=== PATIENT | male | born 1960 | race Caucasian/White ===

== ENCOUNTER → 2020-10-06 08:42 | Outpatient (CLI) | payer OTHER, MEDICAID, SELFPAY ==
--- NOTE | 2020-10-06 | DI.MRI.S_ITS ---
PROCEDURE: MR ANKLE LT WO CON INDICATIONS: Pain in left foot TECHNIQUE: Noncontrast sagittal T1 spin echo and T2 fast spin echo with fat saturation, axial proton density fast spin echo and T2 fast spin echo with fat saturation, coronal T1 spin echo and T2 fast spin echo with fat saturation through the ankle/hindfoot. COMPARISON: None. FINDINGS: Image quality: Excellent. Bones and joints: No bone marrow contusions or fractures. No hindfoot coalitions. No osteochondral injuries of the talar dome. No pathologic joint effusions. Medial structures: The posterior tibialis, flexor digitorum longus, and flexor hallucis longus tendons are intact. Posterior tibialis tendon is thickened with fluid in tendon sheath compatible with moderate tenosynovitis. Flexor digitorum tendon is thickened with increased fluid in the tendon sheath compatible with mild tenosynovitis. The posterior tibial neurovascular bundle appears normal within the tarsal tunnel, without extrinsic mass effect. The deep layer (anterior and posterior tibiotalar ligaments) and superficial layer (tibionavicular, tibiospring, and tibiocalcaneal ligaments) of the deltoid ligament appear normal. The spring ligament components (superomedial calcaneonavicular, medioplantar oblique calcaneonavicular, and inferoplantar longitudinal ligaments) are intact. Accessory navicular bone noted with degenerative changes across the syndesmosis. Lateral structures: The anterior talofibular, calcaneofibular, and posterior talofibular ligaments appear intact. More superiorly, the anterior and posterior tibiofibular ligaments appear intact, as is the intermalleolar ligament. The tibiofibular syndesmosis is normal in width at 2 mm or less. There is a split tear of the peroneus brevis tendon at the ankle. Peroneus longus tendon is thickened with increased internal signal compatible with moderate tendinosis. Adjacent bony peroneal tubercle and retrotrochlear prominence are normal in size. The sinus tarsi demonstrates normal fatty signal, without edema, fibrosis, or cyst formation. Visualized sinus tarsi components (cervical ligament, interosseous talocalcaneal ligament, roots of the inferior extensor retinaculum) appear normal. The calcaneonavicular and calcaneocuboid components of the bifurcate ligament appear intact. The dorsal calcaneocuboid ligament appears intact. Small ganglion cyst noted at the calcaneocuboid joint. Anterior structures: The tibialis anterior, extensor hallucis longus, and extensor digitorum longus tendons appear intact. The dorsal talonavicular ligament appears intact. Posterior and plantar structures: Achilles tendon is intact. Medial gland of the plantar fascia is thickened with adjacent edema compatible with moderate fasciitis. Plantar calcaneal bone spur noted. The lateral band of the plantar fascia are of normal thickness. No abductor digiti quinti muscle atrophy to suggest Bolton neuropathy. IMPRESSION: 1. Split tear of the peroneus brevis tendon at the ankle. 2. Moderate posterior tibialis and mild flexor digitorum tenosynovitis. 3. Moderate peroneus longus tendinosis. 4. Moderate plantar fasciitis. 5. 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 Dictated by: Gita Durant MD, PhD on 10/06/2020 at 12:12 Approved by: Gita Durant MD, PhD on 10/06/2020 at 17:35
== END ==
PROVIDERS: Referring Provider Orthopaedic Surgery Foot and Ankle Surgery; Visit Provider Orthopaedic Surgery Foot and Ankle Surgery
DX: M79.672 Pain in left foot (principal); S96.812A Strain of other specified muscles and tendons at ankle and foot level, left foot, initial encounter; M65.872 Other synovitis and tenosynovitis, left ankle and foot; M72.2 Plantar fascial fibromatosis
CPT/HCPCS: 73721